=== PATIENT | male | born 2000 ===

== ENCOUNTER 2020-02-03 12:36 | Emergency (ER) | payer OTHER, SELFPAY ==
[2020-02-03 12:48] VITALS: BP 138/73; PULSE 99; RESP 18; TEMP 37.4; O2SAT 98; BMI 28.5
--- NOTE | 2020-02-03 13:05 | XR_ITS ---
WS: [id number] Portable AP upright chest, 02/03/2020 Clinical Data: Fever Comparison: PA and lateral chest, 10/13/2018. Findings: No nodules, masses or effusions are seen. The heart is normal. The pulmonary vascularity is not increased. No pneumonia or pneumothorax is seen. XR/XR chest 1V portable [id number] Impression: Negative chest.
[2020-02-03 13:25] LABS: Basophils % 0.3 %; Eosinophils % 0.1 %; Hematocrit 34.7 % (42.0-52.0); Hemoglobin 11.1 g/dL (11.7-16.6); Lymphocytes # 1.1 10^3/uL (0.8-4.8); Lymphocytes % 16.2 %; Mean Corpuscular Hemoglobin 33.1 pg (28.0-34.0); Mean Corpuscular Volume 103.6 fL (80-94); Mean Platelet Volume 9.1 fL (7.4-10.4); Monocytes # 0.6 10^3/uL (0.2-0.9); Neutrophils # 4.84 10^3/uL (1.8-7.7); Neutrophils % 72.6 %; Nucleated Red Blood Cells # 0.1 /100WBC; Nucleated Red Blood Cells % 0.9 %; Platelet Count 113 10^3/cmm (130-400); Red Blood Count 3.35 10^6/uL (4.1-5.3); White Blood Count 6.7 10^3/uL (4.0-10.0)
[2020-02-03 13:40] LABS: Alanine Aminotransferase 61 U/L (0-41); Albumin Level 4.2 g/dL (3.5-5.2); Alkaline Phosphatase 86 IU/L (40-130); Anion Gap 16.4 (5-19); Aspartate Amino Transferase 30 U/L (0-40); Blood Urea Nitrogen 11 mg/dL (6-20); C Reactive Protein 30.6 mg/L (0.0-4.9); Calcium 8.7 mg/dL (8.5-10.5); Carbon Dioxide 22 mmol/L (22-29); Chloride 98 mmol/L (98-107); Globulin 2.7 g/dL (1.3-4.6); Glomerular Filtration Rate 84.5 mL/min (90-130); Glucose 113 mg/dL (65-115); Osmolality Calculated 271 mOsm/kg (285-295); Potassium 4.4 mmol/L (3.5-5.1); Sodium 132 mmol/L (136-145); Total Bilirubin 0.5 mg/dL (0.15-1.2); Total Protein 6.9 g/dL (6.6-8.7)
[2020-02-03] MEDS: diphenhydrAMINE 50 mg/mL SDV 1mL IVP (14:04)
[2020-02-03] MEDS: ketorolac 30 mg/mL INJ IVP (14:04)
[2020-02-03 14:06] VITALS: BP 126/83; PULSE 80; RESP 16; TEMP 36.9; O2SAT 97
[2020-02-03 14:41] LABS: Add Urine Microscopic? NO
[2020-02-03 14:43] LABS: Bilirubin Urine Neg (NEGATIVE); Blood Urine Neg (Negative); Glucose Urine UA Norm (Normal); Ketones Urine Negative (Negative); Leukocyte Esterase Urine Negative (Negative); Nitrate Urine Negative (Negative); Protein Urine Neg (Negative); Urine Appearance Clear (CLEAR); Urine Color Yellow (Yellow); Urobilinogen Urine Norm (Negative); pH Urine 7 (5-7)
[2020-02-03 15:23] VITALS: BP 110/69; PULSE 96; RESP 18; O2SAT 97
--- NOTE | 2020-02-03 15:49 | W.ED.FEVER ---
HPI - Fever General: Chief Complaint: Fever Stated Complaint: fevers chills/cancer pt Time Seen by Provider: 02/03/20 13:01 History of Present Illness: HPI Narrative: 19-year-old male into the emergency department for evaluation of fever. The patient went to bed well and then this morning woke up feeling well checked his temperature and it was just over 100 and then later was over 101 ?F. 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 He is on a variety of immunosuppressant medicines and recently received a Reclast infusion. The patient has absolutely no symptoms such as sore throat, earache, cough, shortness of breath, dysuria, abdominal pain or other clues to where this fever is coming from. The patient has recently been out in the [employer] and [place] and has had several ticks on him he does not think any ticks have been on for greater than 24 hours however. MD elicited complaint: fever Onset (ago): hour(s) Exacerbating factors: nothing Relieving factors: nothing Associated symptoms: Deny abdominal pain, chills, chest pain, cough, extremity pain or rash Treatments prior to arrival fever: acetaminophen Review of Systems Const: Reports: fever(s), body aches and fatigue; Denies: chills Eyes: Denies: change in vision ENMT: Denies: throat pain, odynophagia or swelling of lips/tongue Card: Denies: chest pain, dyspnea on exertion or orthopnea Resp: Denies: dyspnea or productive cough GI: Denies: abdominal pain, change in bowel habits or change in stool character : Denies: urinary frequency or urinary urgency Musc: Denies: extremity pain Skin/Breast: Denies: rash or erythema Physical Exam Const: COMMON NORMALS: no acute distress, average body habitus, patient oriented x3, no limitations, healthy appearing, alert and well nourished HENMT: COMMON NORMALS: normocephalic HEAD & SCALP: normocephalic Eye: COMMON NORMALS: Equal, round and reactive pupils present, EOMs intact bilaterally and conjunctivae normal CONJUNCTIVA: Yes conjunctivae normal PUPIL: Yes Equal, round and reactive pupils present Neck/C-Spine: COMMON NORMALS: full ROM, no lymphadenopathy, supple, no meningeal signs, no JVD, Thyroid normal and No carotid bruits THYROID: Thyroid normal Chest: COMMONS NORMALS: normal inspection of the chest and normal palpation of entire chest wall Resp: COMMON NORMALS: normal respiratory effort, No retractions, No use of accessory muscles, clear to auscultation bilaterally and percussion normal AUSCULTATION: clear to auscultation bilaterally PERCUSSION: percussion normal Cardio: COMMON NORMALS: no JVD GI: COMMON NORMALS: Normal to inspection, nondistended, normoactive bowel sounds present, Soft to palpation, non-tender, No hepatosplenomegaly present, no masses and no bruits PALPATION: Yes Soft to palpation and Yes No hepatosplenomegaly present : COMMON NORMALS: Yes no CVA tenderness BLADDER/KIDNEY EXAM: Yes no CVA tenderness Back/Pelvis: COMMON NORMALS: no CVA tenderness Extremity: COMMON NORMALS: normal to inspection, full ROM, capillary refill normal, no joint enlargement, no clubbing, cyanosis or edema, no calf tenderness and no pedal edema Neuro: COMMON NORMALS: patient oriented x3 SENSORIUM/ORIENTATION: Yes alert MENINGEAL SIGNS: Yes no meningeal signs Skin: COMMON NORMALS: no rashes or lesions noted, no wounds, turgor normal, no jaundice, no petechiae and no mottling GENERAL SKIN EXAM: no rashes or lesions noted and turgor normal Course Vital Signs: Vital signs: Vital Signs Temperature 98.4 F 02/03/20 14:06 Pulse Rate 96 02/03/20 15:23 Respiratory Rate 18 02/03/20 15:23 Blood Pressure 110/69 02/03/20 15:23 Pulse Oximetry 97 02/03/20 15:23 MDM - Fever MDM Narrative: Medical decision making narrative: Discussed fever without a source and immunosuppressed patient. Recommend routine labs blood cultures empiric antibiotics and I will talk with his oncologist in [place]. I think we should empirically cover him for any tickborne illnesses. Patient's vital signs remained stable he has not had any problems with the infusion of antibiotics thus far. He is feeling a little bit better Dr. Nuñez has been paged. Dr. Mcgregor accepting from [facility] and patient is stable and ready for transfer. Paper work filled out. Lab Data: Labs: Lab Results 02/03/20 02/03/20 02/03/20 Range/Units 13:20 13:20 14:32 WBC 6.7 (4.0-10.0) 10^3/ uL RBC 3.35 L (4.1-5.3) 10^6/u L Hgb 11.1 L (11.7-16.6) g/dL Hct 34.7 L (42.0-52.0) % MCV 103.6 H (80-94) fL MCH 33.1 (28.0-34.0) pg MCHC 32.0 (30.0-36.0) g/dL RDW 16.0 H (12.1-15.1) % Plt Count 113 L (130-400) 10^3/c mm MPV 9.1 (7.4-10.4) fL Neut % (Auto) 72.6 % Lymph % (Auto) 16.2 % [place] % (Auto) 9.0 % Eos % (Auto) 0.1 % Baso % (Auto) 0.3 % Neut # (Auto) 4.84 (1.8-7.7) 10^3/u L Lymph # (Auto) 1.1 (0.8-4.8) 10^3/u L [place] # (Auto) 0.6 (0.2-0.9) 10^3/u L Eos # (Auto) 0.0 (0.0-0.8) 10^3/u L Baso # (Auto) 0.0 (0.0-0.1) 10^3/u L Nucleated RBC % (a uto) 0.9 % Nucleated RBCs # 0.1 /100WBC Sodium 132 L (136-145) mmol/L Potassium 4.4 (3.5-5.1) mmol/L Chloride 98 (98-107) mmol/L Carbon Dioxide 22 (22-29) mmol/L Anion Gap 16.4 (5-19) BUN 11 (6-20) mg/dL Creatinine 1.1 (0.7-1.2) mg/dL GFR Calculation 84.5 L (90-130) mL/min Glucose 113 (65-115) mg/dL Calculated Osmolal ity 271 L (285-295) mOsm/k g Calcium 8.7 (8.5-10.5) mg/dL Total Bilirubin 0.5 (0.15-1.2) mg/dL AST 30 (0-40) U/L ALT 61 H (0-41) U/L Alkaline Phosphata se 86 (40-130) IU/L C-Reactive Protein 30.6 H (0.0-4.9) mg/L Total Protein 6.9 (6.6-8.7) g/dL Albumin 4.2 (3.5-5.2) g/dL Globulin 2.7 (1.3-4.6) g/dL Urine Color Yellow (Yellow) Urine Appearance Clear (CLEAR) Urine pH 7 (5-7) Ur Specific Gravit y 1.000 L (1.005-1.030) Urine Protein Neg (Negative) Urine Glucose (UA) Norm (Normal) Urine Ketones Negative (Negative) Urine Blood Neg (Negative) Urine Nitrate Negative (Negative) Urine Bilirubin Neg (NEGATIVE) Urine Urobilinogen Norm (Negative) mg/dL Ur Leukocyte Cintia ase Negative (Negative) Discharge Plan Discharge Patient Disposition: Xfer Other Clinical Impression: Acute febrile illness Condition: Stable Referrals: Romain Colin MD [Primary Care Provider] - Coding Level of Care Code ED Code And Test Clerk for Chg Fwd Exam Comprehensive
[2020-02-03] MEDS: sodium chloride 0.9% 1,000 ML 999 ML IV (16:47)
[2020-02-03] MEDS: piperacillin-tazobactam 3.375 GM in sodium chloride 0.9% (plus) 50 ML IV ×2 (16:48→16:49)
[2020-02-03] MEDS: doxycycline 100 MG in sodium chloride 0.9% (plus) 100 ML IV (16:50)
[2020-02-03 16:51] VITALS: BP 116/74; PULSE 80; RESP 18; TEMP 37; O2SAT 96
[2020-02-03 17:55] VITALS: BP 116/74; PULSE 87; RESP 16; TEMP 36.9; O2SAT 97
== END 2020-02-03 18:00 | disposition other institution (70) ==
PROVIDERS: Emergency Provider Family Medicine; PCP Family Medicine
DX: R50.9 Fever, unspecified (principal)
CPT/HCPCS: 12345; 71045; 80053; 81003; 85025; 86140; 87040; 96365; 96367; 96368; 96375; 99283; 99285; J1200; J1885; J2543; J3370; J3490; J7030; J7050